=== PATIENT | female | born 1975 | race Two or more races ===

== ENCOUNTER → 2025-10-15 | Outpatient (CLI) | payer MEDICAID, SELFPAY ==
[2025-10-14 15:20] LABS: HCG Qualitative,Urine Negative
--- NOTE | 2025-10-15 13:00 | XR_ITS ---
Examination: CT abdomen with intravenous contrast. Coronal 2-D reconstructions. Sagittal 2-D reconstructions. Date and time of exam: October 15, 2025, 1501 hours INDICATIONS: Liver lesion on outside ultrasound examination in 3 weeks ago CTDI: vol (mGy): 4.39 DLP: (mGycm): 166 Technique: Axial images of the abdomen have been obtained, 3 mm slice thickness, 60 cc Isovue 370 2-D sagittal coronal reconstructions Low dose protocols were performed. One or more of the following dose reduction techniques were used; automated exposure control, adjustment of the mA and/or KV according to patient size, use of iterative reconstruction technique. Findings: No visualized liver or splenic lesion Cholelithiasis No pancreatic mass No renal or ureteral calculi, no hydronephrosis Aorta normal size Moderate stool throughout the colon No obstruction Partial visualization 35 mm right and 17 mm left ovarian cysts IMPRESSION: No liver lesions depicted, consider MRI liver pre and post contrast follow-up Partial visualization bilateral pelvic cysts, recommend pelvic sonography follow-up
== END | disposition home or self-care (01) ==
LOC: SCAT 12:58
PROVIDERS: PCP Nurse Practitioner Family; Referring Provider Internal Medicine; Visit Provider Internal Medicine
DX: N94.89 Other specified conditions associated with female genital organs and menstrual cycle (principal); Z32.00 Encounter for pregnancy test, result unknown
CPT/HCPCS: 74160; 81025; A4649; Q9967

== ENCOUNTER → 2025-10-30 | Outpatient (CLI) | payer MEDICAID, SELFPAY ==
[2025-10-30 10:36] LABS: HCG Qualitative,Urine Negative
--- NOTE | 2025-10-30 11:00 | XR_ITS ---
Examination: CTA abdomen, with intravenous contrast. 2-D sagittal and coronal reconstructions. 3-D reconstructions. Date and time of exam: October 30, 2025, 1135 hours, comparison October 15, 2025 INDICATIONS: Outside ultrasound examination identified liver lesion 3 weeks ago CTDI vol (mgy) 23.1 DLP (MGycm) 671 Technique: Multiple CTA images, 2.0 mm slice thickness, obtained abdomen with the high-resolution 64 slice scanner. 100 cc Isovue-370 is administered intravenously. Sagittal and coronal 2-D reconstructions are obtained. 3-D reconstructions, angiographic images are obtained. 3-D postprocessing, including vascular maximum intensity projections. Low dose protocols were performed. One or more of the following dose reduction techniques were used; automated exposure control, adjustment of the mA and/or KV according to patient size, use of iterative reconstruction technique. Findings: Suspicious for 10 mm low-density lesion inferior right lobe of the liver image 95 No biliary tract dilatation Spleen not enlarged No pancreatic or adrenal mass Distended gallbladder with possible gallstones No bowel obstruction Aorta normal size Scattered colonic diverticulosis IMPRESSION: Recommend MRI abdomen liver follow-up pre and postcontrast to confirm 10 mm lesion inferior right lobe of the liver
== END | disposition home or self-care (01) ==
PROVIDERS: PCP Nurse Practitioner Family; Referring Provider Internal Medicine; Visit Provider Internal Medicine
DX: K76.89 Other specified diseases of liver (principal); Z32.00 Encounter for pregnancy test, result unknown
CPT/HCPCS: 74175; 81025; A4649; Q9967